=== PATIENT | male | born 1950 | race Caucasian/White ===

== ENCOUNTER → 2021-04-04 | Outpatient (CLI) | payer MEDICARE ==
--- NOTE | 2021-04-04 15:45 | RAD ---
EXAM: Left lower extremity venous Doppler sonogram. HISTORY: Pain and swelling. TECHNIQUE: Reyez scale and color Doppler sonographic evaluation of the left lower extremity veins with spectral waveform analysis was performed. FINDINGS: There is normal color flow, normal compressibility and there are normal spectral waveforms in the common femoral, superficial femoral, popliteal, posterior tibial and greater saphenous veins. The calf veins are not well seen due to soft tissue edema. IMPRESSION: No Doppler evidence of lower extremity deep venous thrombosis. Electronically signed by: Alice Villagomez MD (04/04/2021 3:42 PM) [facility]
== END ==
LOC: US 15:03
PROVIDERS: ATTEND Physician Assistant
DX: M79.662 Pain in left lower leg (principal)
CPT/HCPCS: 93971